=== PATIENT | female | born 1950 | race Asian ===

== ENCOUNTER 2021-12-20 22:57 | Emergency (ER) | payer OTHER ==
[2021-12-20 23:18] VITALS: BP 155/93; PULSE 97; RESP 18; TEMP 98.2; BMI 26.4
[2021-12-21] MEDS ORDERED: ACETAMINOPHEN 500 MG TABLET (FP) PO ONE (02:03)
[2021-12-21] MEDS ORDERED: ACETAMINOPHEN 500 MG TABLET (FP) ONE (02:16)
== END 2021-12-21 02:22 | disposition home or self-care (01) ==
LOC: JER 22:57
DX: U07.1 COVID-19 (principal)
CPT/HCPCS: 0241U-QW; 99283-25